=== PATIENT | male | born 2000 | race African-American/Black ===

== ENCOUNTER 2020-06-13 14:51 | Emergency (ER) | payer OTHER ==
[2020-06-13] MEDS ORDERED: CHERRY SYRUP 10 ML UDC PO ONE (16:09)
[2020-06-13] MEDS ORDERED: DEXAMETHASONE 10 MG/ML VIAL PO STA (16:09)
[2020-06-13 16:21] LABS: BASOPHILS % (AUTO) 0.6 %; EOSINOPHILS # (AUTO) 0.1 10^3/uL (0.0-0.7); EOSINOPHILS % (AUTO) 2.7 %; LYMPHOCYTES # (AUTO) 1.8 10^3/uL (1.5-3.5); LYMPHOCYTES % (AUTO) 34.4 %; MEAN CORPUSCULAR HEMOGLOBIN 29.4 pg (27.0-31.0); MEAN CORPUSCULAR HGB CONC 34.6 g/dL (32.0-36.0); MEAN CORPUSCULAR VOLUME 84.7 fL (80.0-94.0); MEAN PLATELET VOLUME 12.3 fL (7.4-11.4); MONOCYTES # (AUTO) 0.5 10^3/uL (0.0-1.0); MONOCYTES % (AUTO) 10.2 %; NEUTROPHILS # (AUTO) 2.7 10^3/uL (1.5-6.6); NEUTROPHILS % (AUTO) 51.7 %; PLT - PLATELET COUNT 285 10^3/uL (130-450); RED BLOOD COUNT 5.11 10^6/uL (4.70-6.10); RED CELL DISTRIBUTION WIDTH 11.6 % (12.0-15.0); WHITE BLOOD COUNT 5.2 x10^3/uL (4.8-10.8)
[2020-06-13 16:34] LABS: ALBUMIN 4.3 g/dL (3.2-5.5); ALBUMIN/GLOBULIN RATIO 1.4 (1.0-2.2); BILIRUBIN,TOTAL 0.6 mg/dL (0.2-1.0); CALCIUM 9.3 mg/dL (8.5-10.3); CREATININE 1.1 mg/dL (0.6-1.2); TOTAL PROTEIN 7.3 g/dL (6.7-8.2)
--- NOTE | 2020-06-13 16:44 | CT Report ---
PROCEDURE: HEAD WO INDICATIONS: Ataxia TECHNIQUE: Noncontrast 4.5 mm thick angled axial sections acquired from the foramen magnum to the vertex. For r adiation dose reduction, the following was used: automated exposure control, adjustment of mA and/or kV according to patient size. COMPARISON: None. FINDINGS: Image quality: Excellent. CSF spaces: Basal cisterns are patent. No extra-axial fluid collections. Ventricles are normal in size and shape. Brain: No midline shift. No intracranial masses or hemorrhage. Sheehan-white matter interface is norm al. Skull and face: Calvarium and visualized facial bones are intact, without suspicious lesions. Sinuses: Visualized sinuses and mastoids are clear. IMPRESSION: No acute intracranial process demonstrated. Reviewed by: Lex Valentin MD on 06/13/2020 4:43 PM PDT Approved by: Lex Valentin MD on 06/13/2020 4:43 PM PDT Station ID: [id number]
[2020-06-13 17:24] LABS: BILIRUBIN,URINE NEGATIVE (NEGATIVE); GLUCOSE, URINE (UA) NEGATIVE (NEGATIVE); KETONES,URINE (UA) NEGATIVE (NEGATIVE); LEUKOCYTE ESTERASE, URINE NEGATIVE (NEGATIVE); NITRITE,URINE NEGATIVE (NEGATIVE); OCCULT BLOOD,URINE NEGATIVE (NEGATIVE); PROTEIN,URINE NEGATIVE (NEGATIVE); UROBILINOGEN,URINE 0.2 (NORMAL) E.U./dL (NORMAL)
[2020-06-13 17:26] LABS: CLARITY,URINE CLEAR (CLEAR)
--- NOTE | 2020-06-13 17:33 | ED Physician Documentation ---
History of Present Illness - Stated complaint Stated Complaint: OFF BALANCE,THOUGHTS CLOUDED - Chief complaint Chief Complaint: General - History obtained from History obtained from: Patient - History of Present Illness Timing: Today - Additonal information Additional information: Previously well 19-year-old male went to go to work today found that he was somewhat off balance on his gait and he did not feel like he could continue with his work. He was asked by his command to come to the [facility] department for evaluation. He feels that he is off balance when he tries to walk or stand. He denies any use of any type of medication and has not had this happen to him previously he denies any current illness. Review of Systems Constitutional: denies: Fever Eyes: denies: Loss of vision Ears: reports: Loss of hearing. denies: Ear pain Nose: reports: Congestion. denies: Rhinorrhea / runny nose Throat: denies: Sore throat Cardiac: denies: Chest pain / pressure, Palpitations Respiratory: denies: Dyspnea, Cough GI: denies: Abdominal Pain, Nausea, Vomiting : denies: Dysuria, Frequency PD PAST MEDICAL HISTORY - Past Medical History Past Medical History: No - Past Surgical History Past Surgical History: No - Present Medications Home Medications: Ambulatory Orders Medication Instructions Recorded Confirmed Amox/Clav 875/125 [Augmentin] 1 each PO Q12H #20 tablet 06/13/20 - Allergies Allergies/Adverse Reactions: Allergies Allergy/AdvReac Type Severity Reaction Status Date / Time No Known Drug Allergies Allergy Verified 06/13/20 15:06 - Social History Does the pt smoke?: No Smoking Status: Never smoker Does the pt drink ETOH?: Yes Does the pt have substance abuse?: No - Immunizations Immunizations are current?: Yes - POLST Patient has POLST: No PD ED PE NORMAL - Vitals Vital signs reviewed: Yes - General General: Alert and oriented X 3, No acute distress, Well developed/nourished - HEENT HEENT: Atraumatic, PERRL, EOMI, Pharynx benign, Dentition benign, Other (right TM is inflamed with rounding of the umbo the left is retracted. 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, No motor deficit, No sensory deficit, Normal speech Eye Opening: Spontaneous Motor: Obeys Commands Verbal: Oriented GCS Score: 15 - Psych Psych: Normal mood, Normal affect Results - Vitals Vitals: Vital Signs - 24 hr 06/13/20 06/13/20 15:02 16:51 Temperature 36.6 C 36.8 C Heart Rate 61 63 Respiratory 16 16 Rate Blood Pressure 119/63 132/80 H O2 Saturation 99 97 Oxygen O2 Source Room air - Labs Labs: Laboratory Tests 06/13/20 06/13/20 06/13/20 16:15 16:15 17:00 WBC 5.2 RBC 5.11 Hgb 15.0 Hct 43.3 MCV 84.7 MCH 29.4 MCHC 34.6 RDW 11.6 L Plt Count 285 MPV 12.3 H Neut # (Auto) 2.7 Lymph # (Auto) 1.8 Creek # (Auto) 0.5 Eos # (Auto) 0.1 Baso # (Auto) 0.0 Absolute Nucleated RBC 0.00 Nucleated RBC % 0.0 Sodium 138 Potassium 3.9 Chloride 102 Carbon Dioxide 27 Anion Gap 9.0 BUN 15 Creatinine 1.1 Estimated GFR (MDRD) 103 Glucose 102 H Calcium 9.3 Total Bilirubin 0.6 AST 18 ALT 16 Alkaline Phosphatase 56 Total Protein 7.3 Albumin 4.3 Globulin 3.0 Albumin/Globulin Ratio 1.4 Lipase 34 Urine Color YELLOW Urine Clarity CLEAR Urine pH 7.0 Ur Specific [place] 1.020 Urine Protein NEGATIVE Urine Glucose (UA) NEGATIVE Urine Ketones NEGATIVE Urine Occult Blood NEGATIVE Urine Nitrite NEGATIVE Urine Bilirubin NEGATIVE Urine Urobilinogen 0.2 (NORMAL) Ur Leukocyte Esterase NEGATIVE Ur Microscopic Review NOT INDICATED Urine Culture Comments NOT INDICATED - Rads (name of study) CT head Radiology: Prelim report reviewed (Impression no acute intracranial process demonstrated.), EMP read indepedently, See rad report PD MEDICAL DECISION MAKING - ED course Complexity details: reviewed results, re-evaluated patient, considered differential, d/w patient ED course: 19-year-old male with an acute ataxic gait today and feeling off balance has noticed that he was having some muffled hearing in the right ear while talking on the telephone. He has otitis on the right. I suspect this is the reason for his ataxic gait and here in the emergency department is treated with dexamethasone 10 mg orally we will place him on some antibiotic and take him off work for 3 days Departure - Departure Disposition: Home, Self Care Clinical Impression: Ataxia Otitis media Qualifiers: Otitis media type: suppurative Chronicity: acute Laterality: right Recurrence: non-recurrent Spontaneous tympanic membrane rupture: without spontaneous rupture Qualified Code(s): H66.001 - Acute suppurative otitis media without spontaneous rupture of ear drum, right ear Condition: Stable Instructions: ED Otitis Media Acute Adult, ED Vertigo Unspecified Follow-Up: MARTA Saucedo [Provider Group] Prescriptions: Amox/Clav 875/125 [Augmentin] 1 each PO Q12H #20 tablet Forms: Activity restrictions
[2020-06-13 18:29] VITALS: BP 128/74
== END 2020-06-13 18:33 | disposition home or self-care (01) ==
LOC: ED 14:51
DX: H66.001 Acute suppurative otitis media without spontaneous rupture of ear drum, right ear (principal); R27.0 Ataxia, unspecified
CPT/HCPCS: 36415; 70450; 80053; 81003; 83690; 85025; 99283; 99284; A9270; 81001; 87086